=== PATIENT | male | born 1965 | race Caucasian/White ===

== ENCOUNTER → 2017-03-28 | Outpatient (CLI) | payer BC | END | disposition disaster alternative care site (69) | LOC: GAIR 12:41 | DX: R50.9 Fever, unspecified (principal); J39.0 Retropharyngeal and parapharyngeal abscess; M54.2 Cervicalgia; K13.79 Other lesions of oral mucosa; R68.84 Jaw pain; Z91.030 Bee allergy status | CPT/HCPCS: A0422; A0431; A0436; J2405 ==